=== PATIENT | male | born 1995 | race African-American/Black ===

== ENCOUNTER 2022-01-04 11:22 | Emergency (ER) | payer MEDICAID ==
[~2022-01-04] VITALS: Ht 182.9 cm; Wt 77.3 kg
[2022-01-04] MEDS ORDERED: NO HOME MEDS (13:20)
[2022-01-04 14:15] VITALS: BP 144/101
--- NOTE | 2022-01-04 14:15 | NUR ---
DC LAB ORDERS PER ILIA COREAS.
== END 2022-01-04 14:17 | disposition home or self-care (01) ==
LOC: ER 11:23
DX: S02.40FA Zygomatic fracture, left side, initial encounter for closed fracture (principal); S02.85XA Fracture of orbit, unspecified, initial encounter for closed fracture; S02.401A Maxillary fracture, unspecified side, initial encounter for closed fracture; Y04.8XXA Assault by other bodily force, initial encounter; Y93.89 Activity, other specified; Y92.89 Other specified places as the place of occurrence of the external cause; Y99.8 Other external cause status
CPT/HCPCS: 70486; 99284

== ENCOUNTER 2022-01-19 13:03 | Emergency (ER) | payer MEDICAID ==
[~2022-01-19] VITALS: Ht 182.9 cm; Wt 64.3 kg
[~2022-01-19 13:03] MED LIST: NO HOME MEDS
[2022-01-19 13:19] VITALS: BP 119/74
[2022-01-19 13:52] LABS: BASOPHILS % (AUTO) 0.5 % (0-1); EOSINOPHILS % (AUTO) 0.1 % (0-6); HEMATOCRIT 46.5 % (42.0-52.0); HEMOGLOBIN 15.7 g/dl (14.0-17.9); LYMPHOCYTES % (AUTO) 11.5 % (21-51); MEAN CORPUSCULAR HEMOGLOBIN 28.7 PG (27.0-31.0); MEAN CORPUSCULAR HGB CONC 33.7 g/dL (33.0-36.5); MEAN CORPUSCULAR VOLUME 85.3 FL (78-98); MONOCYTES # (AUTO) 0.4 X10'3 (0-0.9); MONOCYTES % (AUTO) 4.8 % (2-12); NEUTROPHILS # (AUTO) 7.2 X10'3 (1.8-7.7); NEUTROPHILS % (AUTO) 83.1 % (42-75); PLATELET COUNT 356 X10'3 (140-440); RED BLOOD COUNT 5.45 X10'6 (4.70-6.10); RED CELL DISTRIBUTION WIDTH 14.2 % (11.5-14.5); WHITE BLOOD COUNT 8.7 X10'3 (4.5-11.0)
[2022-01-19 14:08] LABS: ALANINE AMINOTRANSFERASE 25 U/L (12-78); ALBUMIN 4.2 G/DL (3.4-5.0); ALKALINE PHOSPHATASE 119 IU/L (46-116); ANION GAP 11 (8-16); ASPARTATE AMINO TRANSFERASE 13 U/L (10-37); BILIRUBIN,TOTAL 0.5 MG/DL (0.1-1.0); BLOOD UREA NITROGEN 11 MG/DL (7-18); BUN/CREATININE RATIO 12.5 (5.4-32.0); CALCIUM 9.3 MG/DL (8.5-10.1); CHLORIDE 98 MMOL/L (99-107); CREATININE 0.88 MG/DL (0.60-1.10); GLUCOSE 120 MG/DL (70-104); POTASSIUM 3.4 MMOL/L (3.5-5.1); SODIUM 137 MMOL/L (135-145); TOTAL CARBON DIOXIDE 28.2 MMOL/L (24-32); TOTAL PROTEIN 8.4 G/DL (6.4-8.2); eGFR > 90 ML/MIN
[2022-01-19 14:10] LABS: AMYLASE 626 U/L (25-115); LIPASE 1375 U/L (73-393)
== END 2022-01-19 18:18 | disposition left against medical advice (07) ==
LOC: ER 13:05
DX: R10.12 Left upper quadrant pain (principal); Z53.21 Procedure and treatment not carried out due to patient leaving prior to being seen by health care provider
CPT/HCPCS: 36415; 80053; 82150; 83690; 85025

== ENCOUNTER 2022-08-11 16:48 | Inpatient (IN) | payer MEDICAID ==
[~2022-08-11] VITALS: Ht 180.3 cm; Wt 75.0 kg
[~2022-08-11 16:48] MED LIST changes: +ACETYLCYSTEINE IV ONE; +DEXTROSE 5% IV ONE; +WATER IV ONE
--- NOTE | 2022-08-11 16:50 | NUR ---
SPOKE WITH TERRY FROM POISON CONTROL RECOMMENDATIONS TO CHECK TYLENOL LEVELS IN 4 HOURS, CHECK ASA LEVEL. MONITOR FOR 6 HRS, MONITOR FOR AGITATION, SEIZURES, TACKYCHARDIA, AND HALLUCINATIONS. NOTIFIED
[2022-08-11] MEDS ORDERED: WATER IV ONE ×3 (17:00→20:00)
[2022-08-11] MEDS ORDERED: ACETYLCYSTEINE IV ONE ×3 (17:00→20:00)
[2022-08-11] MEDS ORDERED: DEXTROSE 5% IV ONE ×3 (17:00→20:00)
[2022-08-11] MEDS ORDERED: charcoal, activated 50 GM/240 ML bottle PO ONE (17:10)
[2022-08-11 17:15] LABS: BASOPHILS % (AUTO) 0.5 % (0-1); EOSINOPHILS # (AUTO) 0.5 X10'3 (0-0.9); EOSINOPHILS % (AUTO) 5.3 % (0-6); HEMATOCRIT 43.1 % (42.0-52.0); HEMOGLOBIN 14.4 g/dl (14.0-17.9); LYMPHOCYTES # (AUTO) 1.6 X10'3 (1.1-4.8); LYMPHOCYTES % (AUTO) 19.1 % (21-51); MEAN CORPUSCULAR HEMOGLOBIN 28.3 PG (27.0-31.0); MEAN CORPUSCULAR HGB CONC 33.4 g/dL (33.0-36.5); MEAN CORPUSCULAR VOLUME 84.9 FL (78-98); MEAN PLATELET VOLUME 8.8 FL (7.4-10.4); MONOCYTES % (AUTO) 11.8 % (2-12); NEUTROPHILS # (AUTO) 5.4 X10'3 (1.8-7.7); NEUTROPHILS % (AUTO) 63.3 % (42-75); PLATELET COUNT 249 X10'3 (140-440); RED BLOOD COUNT 5.07 X10'6 (4.70-6.10); RED CELL DISTRIBUTION WIDTH 14.8 % (11.5-14.5); WHITE BLOOD COUNT 8.5 X10'3 (4.5-11.0)
[2022-08-11 17:29] LABS: ALANINE AMINOTRANSFERASE 25 U/L (12-78); ALBUMIN 4.3 G/DL (3.4-5.0); ALBUMIN/GLOBULIN RATIO 1.2 (1.1-1.5); ALKALINE PHOSPHATASE 138 IU/L (46-116); ANION GAP 14 (8-16); ASPARTATE AMINO TRANSFERASE 19 U/L (10-37); BILIRUBIN,TOTAL 0.5 MG/DL (0.1-1.0); BLOOD UREA NITROGEN 10 MG/DL (7-18); BUN/CREATININE RATIO 12.7 (5.4-32.0); CALCIUM 9.3 MG/DL (8.5-10.1); CHLORIDE 100 MMOL/L (99-107); CREATININE 0.79 MG/DL (0.60-1.10); GLUCOSE 98 MG/DL (70-104); POTASSIUM 3.4 MMOL/L (3.5-5.1); SODIUM 136 MMOL/L (135-145); TOTAL CARBON DIOXIDE 21.9 MMOL/L (24-32); TOTAL PROTEIN 7.9 G/DL (6.4-8.2); eGFR > 90 ML/MIN
[2022-08-11 17:38] LABS: ETHANOL 0.123 GM/DL (0.0-0.010)
[2022-08-11 17:40] LABS: ACETAMINOPHEN 52.5 UG/ML (10-30)
[2022-08-11] MEDS ORDERED: ringers solution, lacted 1,000 ML IV ONE (18:10)
[2022-08-11 18:26] LABS: CREATINE KINASE 239 U/L (39-308)
[2022-08-11 18:40] LABS: ABG BASE EXCESS -1.2 mmol/L (-2.0-2.0); ABG HCO3 23.1 mmol/L (22.0-26.0); ABG OXYGEN SATURATION 97.6 % (94-97); ABG PO2 (T) 100.5 mmHg (75.0-100.0); ALLEN'S TEST Yes; FCOHb 2.7 % (0.0-3.9); FMetHb 0.3 % (0.0-1.5); FO2Hb 94.7 % (94-97); PATIENT TEMPERATURE 36.6; TOTAL HEMOGLOBIN 15.1 G/dl (14.0-17.9)
[2022-08-11 18:44] LABS: CLARITY,URINE CLEAR (Clear); COLOR,URINE YELLOW (Yellow); GLUCOSE, URINE NEGATIVE (Neg); KETONES,URINE TRACE mg/dl (Neg); LEUKOCYTE ESTERASE ,URINE NEGATIVE (Neg); NITRITES, URINE NEGATIVE (Neg); OCCULT BLOOD,URINE NEGATIVE (Neg); PH,URINE 6.5 (4.8-8.0); PROTEIN,URINE NEGATIVE (Neg); UROBILINOGEN,URINE 0.2 E.U/dL (0.2-1.0)
[2022-08-11 18:48] LABS: UA COLLECTION TYPE CLN CATCH MIDSTREAM
[2022-08-11] MEDS ORDERED: potassium CL 10mEq/100ml bag 100 ML IV PRN (19:05)
[2022-08-11] MEDS ORDERED: mag hydrox/Alum hydrox/simeth 30ml oral suspension PO PRN (19:05)
[2022-08-11] MEDS ORDERED: magnesium Cl slow-release 64mg tablet PO PRN (19:05)
[2022-08-11] MEDS: normal saline 1000ml 1,000 ML IV SCH (19:05)
[2022-08-11] MEDS ORDERED: magnesium 2GM in 50ml NS 50 ML IV PRN (19:05)
[2022-08-11] MEDS ORDERED: magnesium 4gm in 100ml NS 100 ML IV PRN (19:05)
[2022-08-11] MEDS ORDERED: POTASSIUM BICARB 20meq eff tab 20 MEQ TABLET.EFF PO PRN ×2 (19:05)
[2022-08-11] MEDS ORDERED: magnesium hydroxide 30ml (MOM) UD suspension PO PRN (19:05)
[2022-08-11] MEDS ORDERED: ondansetron/PF 4mg/2ml inj IV PRN (19:05)
[2022-08-11 19:51] LABS: URINE AMPHETAMINE SCREEN POSITIVE (Neg); URINE BARBITUATE SCREEN NEGATIVE (Neg); URINE BENZODIAZEPINES SCREEN NEGATIVE (Neg); URINE CANNABINOID SCREEN POSITIVE (Neg); URINE COCAINE SCREEN POSITIVE (Neg); URINE METHADONE SCREEN NEGATIVE (Neg); URINE OPIATE SCREEN NEGATIVE (Neg); URINE PHENCYCLIDINE SCREEN NEGATIVE (Neg)
[2022-08-11] MEDS: heparin, porcine 5000 units/ml vial SQ SCH (20:00)
[2022-08-11] MEDS: docusate sod 100mg capsule PO SCH (20:00)
[2022-08-11] MEDS: K and/or MAG REPLACEMENT MC SCH (20:00)
--- NOTE | 2022-08-11 20:02 | NUR ---
At beginning of shift pt and visitor were arguing loudly with profanity. Pt ordered visitor to leave. Second visitor and patient were talking quietly for an hour or so when patient again began using profanity. Pt was asked to keep language appropriate. Pt became angry and verbally abusive to staff. Visitor asked to leave until patient is calm and appropriate. Security called for standby. Second nurse and MD spoke to patient and administered ordered medication.
[2022-08-11 20:56] LABS: ACETAMINOPHEN 30.5 UG/ML (10-30); MAGNESIUM 1.8 MG/DL (1.5-2.4); POTASSIUM 3.3 MMOL/L (3.5-5.1)
--- NOTE | 2022-08-11 23:25 | NUR ---
Patient in room ED 5. I have received report from Tamela BALDWIN and had the opportunity to ask questions and assume patient care.
[2022-08-12] VITALS: BP 157/90
[2022-08-12] MEDS ORDERED: WATER IV ONE ×2
[2022-08-12] MEDS ORDERED: ACETYLCYSTEINE IV ONE ×2
[2022-08-12] MEDS ORDERED: DEXTROSE 5% IV ONE ×2
--- NOTE | 2022-08-12 00:26 | NUR ---
pt is in bed laying low fowlers. Pt having c/o abd pain and n/v. PRN Zofran was administered. The pts room has been assessed for self-harm and saftey risks, including ligature. Pts behavior is sad, soft spoken, depressed about situation with the babys mother and daughter. Lethality assessment complete. Sitter at bedside, BLL, frequent rounding, dining room cashier socks on. will continue to monitor.
[2022-08-12 02:00] VITALS: BP 140/60
--- NOTE | 2022-08-12 06:15 | NUR ---
Problems reprioritized. Patient report given, questions answered & plan of care reviewed with Fahad BALDWIN.
--- NOTE | 2022-08-12 06:30 | NUR ---
Patient in room PCU 3018. I have received report from Maye BALDWIN and had the opportunity to ask questions and assume patient care.Patient resting in bed in no acute distress. Sitter at bedside.
[2022-08-12 07:00] VITALS: BP 131/90
[2022-08-12 07:04] LABS: BASOPHILS # (AUTO) 0.1 X10'3 (0-0.2); BASOPHILS % (AUTO) 0.9 % (0-1); EOSINOPHILS # (AUTO) 0.3 X10'3 (0-0.9); EOSINOPHILS % (AUTO) 5.1 % (0-6); HEMATOCRIT 40.3 % (42.0-52.0); HEMOGLOBIN 13.7 g/dl (14.0-17.9); LYMPHOCYTES # (AUTO) 0.1 X10'3 (1.1-4.8); LYMPHOCYTES % (AUTO) 2.2 % (21-51); MEAN CORPUSCULAR HEMOGLOBIN 28.7 PG (27.0-31.0); MEAN CORPUSCULAR HGB CONC 33.9 g/dL (33.0-36.5); MEAN CORPUSCULAR VOLUME 84.6 FL (78-98); MEAN PLATELET VOLUME 8.6 FL (7.4-10.4); MONOCYTES # (AUTO) 0.3 X10'3 (0-0.9); NEUTROPHILS # (AUTO) 5.6 X10'3 (1.8-7.7); NEUTROPHILS % (AUTO) 87.8 % (42-75); PLATELET COUNT 189 X10'3 (140-440); RED BLOOD COUNT 4.76 X10'6 (4.70-6.10); RED CELL DISTRIBUTION WIDTH 14.5 % (11.5-14.5); WHITE BLOOD COUNT 6.4 X10'3 (4.5-11.0)
[2022-08-12 07:28] LABS: ALANINE AMINOTRANSFERASE 20 U/L (12-78); ALBUMIN 3.4 G/DL (3.4-5.0); ALBUMIN/GLOBULIN RATIO 0.9 (1.1-1.5); ALKALINE PHOSPHATASE 117 IU/L (46-116); ANION GAP 7 (8-16); ASPARTATE AMINO TRANSFERASE 15 U/L (10-37); BILIRUBIN,TOTAL 0.5 MG/DL (0.1-1.0); BLOOD UREA NITROGEN 7 MG/DL (7-18); BUN/CREATININE RATIO 9.2 (5.4-32.0); CALCIUM 8.8 MG/DL (8.5-10.1); CHLORIDE 105 MMOL/L (99-107); CREATININE 0.76 MG/DL (0.60-1.10); GLUCOSE 95 MG/DL (70-104); MAGNESIUM 1.7 MG/DL (1.5-2.4); POTASSIUM 3.7 MMOL/L (3.5-5.1); SODIUM 141 MMOL/L (135-145); TOTAL CARBON DIOXIDE 28.7 MMOL/L (24-32); eGFR > 90 ML/MIN
[2022-08-12 07:45] LABS: ACETAMINOPHEN < 2.0 UG/ML (10-30)
[2022-08-12] MEDS: docusate sod 100mg capsule PO SCH ×2 (08:00→20:00)
[2022-08-12] MEDS: heparin, porcine 5000 units/ml vial SQ SCH ×2 (08:00→20:00)
[2022-08-12] MEDS: K and/or MAG REPLACEMENT MC SCH ×2 (08:00→19:57)
[2022-08-12 11:00] VITALS: BP 124/78
--- NOTE | 2022-08-12 11:49 | NUR ---
Page Sent to Dr. Cruz promotional table spacer PAGER ID: [phone] MESSAGE: [id number] Fabian. PT requesting nicotine patch ok to order? Sara @[phone] (70 character message out of a maximum of 240)
[2022-08-12] MEDS: normal saline 1000ml 1,000 ML IV SCH (11:50)
--- NOTE | 2022-08-12 12:01 | NUR ---
per telephone conversation with poison control ok to stop acetylcysteine gtt and there are no new recommendations at this time.
--- NOTE | 2022-08-12 12:06 | NUR ---
Page Sent to Dr. Cruz regarding phone call with poison control. promotional table spacer PAGER ID: [phone] MESSAGE: [id number] Peralta. per poison control ok to stop acetylcysteine gtt at this time. They have no new recommendations and there was already a case open with poison control. Sara @[phone] (181 character message out of a maximum of 240)
[2022-08-12] MEDS: oxyCODONE IR 5mg (immed. release) tablet PO PRN ×2 (12:41→20:07)
--- NOTE | 2022-08-12 13:09 | NUR ---
Per telephone order by Dr. Cruz stop acetylcysteine gtt per poison control recommendation, stop NS, and ok to order nicotine patch.
[2022-08-12] MEDS: nicotine 21mg patch - 24 hr TD SCH (13:23)
[2022-08-12 15:00] VITALS: BP 141/98
--- NOTE | 2022-08-12 17:44 | NUR ---
Page Sent to Dr. Cruz regarding [facility] promotional table spacer PAGER ID: [phone] MESSAGE: [phone] Peralta. Patient has been cleared by [facility] with a safety plan and is not on a mental health hold . Sara @[phone]
--- NOTE | 2022-08-12 18:09 | NUR ---
Problems reprioritized. Patient report given, questions answered & plan of care reviewed with Jose BALDWIN. Patient resting in bed in no acute distress.
[2022-08-12 19:10] VITALS: BP 135/78
[2022-08-13 06:00] VITALS: BP 140/96
--- NOTE | 2022-08-13 06:29 | NUR ---
Problems reprioritized. Patient report given, questions answered & plan of care reviewed with NICOLE. Addendum: 08/13/22 at 0630 by Benjamin Albert RN Amended: Links added.
[2022-08-13 06:40] LABS: HEMOGLOBIN 13.5 g/dl (14.0-17.9); LYMPHOCYTES # (AUTO) 0.5 X10'3 (1.1-4.8); MONOCYTES # (AUTO) 0.5 X10'3 (0-0.9); MONOCYTES % (AUTO) 17.3 % (2-12); NEUTROPHILS # (AUTO) 1.9 X10'3 (1.8-7.7); RED BLOOD COUNT 4.76 X10'6 (4.70-6.10)
[2022-08-13 06:43] LABS: BASOPHILS % (AUTO) 0.7 % (0-1); EOSINOPHILS % (AUTO) 0.1 % (0-6); HEMATOCRIT 40.2 % (42.0-52.0); LYMPHOCYTES % (AUTO) 17.4 % (21-51); MEAN CORPUSCULAR HEMOGLOBIN 28.3 PG (27.0-31.0); MEAN CORPUSCULAR HGB CONC 33.5 g/dL (33.0-36.5); MEAN CORPUSCULAR VOLUME 84.5 FL (78-98); NEUTROPHILS % (AUTO) 64.5 % (42-75); PLATELET COUNT 153 X10'3 (140-440)
[2022-08-13 07:00] VITALS: BP 140/96
[2022-08-13 07:30] LABS: ALANINE AMINOTRANSFERASE 22 U/L (12-78); ALBUMIN 3.5 G/DL (3.4-5.0); ALKALINE PHOSPHATASE 109 IU/L (46-116); ANION GAP 10 (8-16); ASPARTATE AMINO TRANSFERASE 21 U/L (10-37); BILIRUBIN,TOTAL 0.3 MG/DL (0.1-1.0); BLOOD UREA NITROGEN 4 MG/DL (7-18); BUN/CREATININE RATIO 4.9 (5.4-32.0); CHLORIDE 103 MMOL/L (99-107); CREATININE 0.82 MG/DL (0.60-1.10); GLUCOSE 105 MG/DL (70-104); MAGNESIUM 1.6 MG/DL (1.5-2.4); POTASSIUM 3.3 MMOL/L (3.5-5.1); SODIUM 138 MMOL/L (135-145); TOTAL CARBON DIOXIDE 25.5 MMOL/L (24-32); eGFR > 90 ML/MIN
[2022-08-13] MEDS: heparin, porcine 5000 units/ml vial SQ SCH (08:00)
[2022-08-13] MEDS: nicotine 21mg patch - 24 hr TD SCH (08:00)
[2022-08-13] MEDS: docusate sod 100mg capsule PO SCH (08:00)
[2022-08-13] MEDS: oxyCODONE IR 5mg (immed. release) tablet PO PRN (08:08)
[2022-08-13 10:39] LABS: PLATELET ESTIMATE NORMAL; TOTAL CELLS COUNTED 100
--- NOTE | 2022-08-13 10:46 | NUR ---
Patient was DC to home with safety plan in place and was picked up by his girlfriend. Patient was grateful for the care he received here stating that what he did was stupid and he needs to have someone to talk to when he leaves here. Patient was alert oriendted and appropriate at time of DC. PIV was removed with cannula intact. No new RX . Patient took all of his belongings with him. DC instructions and warning s/s were reviewed with the patient and his girlfriend and they both verbalized understanding. Patient walked out of the building and got into a private vehicle.
== END 2022-08-13 10:27 | disposition home or self-care (01) | DRG 817 ==
LOC: ER 16:48 → ED HOLD 19:03 → PCU 3S 23:39
PROVIDERS: ADMIT Internal Medicine; ATTEND Internal Medicine
DX: T39.1X2A Poisoning by 4-Aminophenol derivatives, intentional self-harm, initial encounter (principal); F10.129 Alcohol abuse with intoxication, unspecified; F17.200 Nicotine dependence, unspecified, uncomplicated; T39.312A Poisoning by propionic acid derivatives, intentional self-harm, initial encounter; R10.9 Unspecified abdominal pain; Y92.89 Other specified places as the place of occurrence of the external cause
CPT/HCPCS: 36415; 36600; 71045; 80053; 80305; 80320; 80329; 81003; 82550; 82803; 83735; 83880; 84132; 84484; 85007; 85018; 85025; 87081; 93005; 96365; 99285; G0378; J0132; J1644; J2405; J7030; J7060; J7070; J7120

== ENCOUNTER 2022-08-19 10:40 | Emergency (ER) | payer MEDICAID ==
[~2022-08-19] VITALS: Ht 180.3 cm; Wt 77.3 kg
[~2022-08-19 10:40] MED LIST changes: -ACETYLCYSTEINE IV ONE; -DEXTROSE 5% IV ONE; -WATER IV ONE
[2022-08-19 10:49] VITALS: BP 135/74
[2022-08-19] MEDS ORDERED: ibuprofen tablet 400 MG TABLET PO ONE (11:30)
== END 2022-08-19 12:22 | disposition home or self-care (01) ==
LOC: ER 10:40
DX: S62.361A Nondisplaced fracture of neck of second metacarpal bone, left hand, initial encounter for closed fracture (principal); M79.642 Pain in left hand; Z72.89 Other problems related to lifestyle; W19.XXXA Unspecified fall, initial encounter; Y93.89 Activity, other specified; Y92.89 Other specified places as the place of occurrence of the external cause; Y99.8 Other external cause status
CPT/HCPCS: 29125; 73130; 99283; A6446; A6449

== ENCOUNTER 2023-04-02 11:52 | Emergency (ER) | payer OTHER, MEDICAID ==
[~2023-04-02] VITALS: Ht 182.9 cm; Wt 77.3 kg
[2023-04-02 12:00] VITALS: BP 137/88
[2023-04-02] MEDS ORDERED: CYCL-1 PO (12:43)
[2023-04-02] MEDS ORDERED: IBUP-1986 PO (12:43)
[2023-04-02] MEDS ORDERED: ketorolac trometh inj. 60 MG/2 ML VIAL IM ONE (12:45)
== END 2023-04-02 12:59 | disposition home or self-care (01) ==
LOC: ER 11:53
DX: S46.811A Strain of other muscles, fascia and tendons at shoulder and upper arm level, right arm, initial encounter (principal); Z72.89 Other problems related to lifestyle; V87.7XXA Person injured in collision between other specified motor vehicles (traffic), initial encounter; Y93.89 Activity, other specified; Y92.488 Other paved roadways as the place of occurrence of the external cause; Y99.8 Other external cause status
CPT/HCPCS: 96372; 99283; J1885